=== PATIENT | male | born 1990 | race Caucasian/White ===

== ENCOUNTER 2021-08-01 08:45 | Outpatient (REF) | payer OTHER, SELFPAY ==
[2021-08-01 11:42] LABS: Hematocrit 46.1 % (42.0-52.0); Hemoglobin 15.6 g/dl (14.0-18.0); Mean Corpuscular HGB Conc 33.8 g/dl (31.0-36.0); Mean Corpuscular Hemoglobin 29.3 pg (27.0-33.0); Mean Corpuscular Volume 86.7 fL (80.0-98.0); Mean Platelet Volume 11.4 fL (9.4-12.4); Platelet Count 290 X10*3/uL (160-400); Red Blood Count 5.32 X10*6/uL (4.60-5.80); Red Cell Distribution Width 13.5 % (11.0-16.0); White Blood Count 9.7 X10*3/uL (4.8-10.8)
[2021-08-01 12:30] LABS: TSH reflex Free T4 1.57 uIU/mL (0.32-4.0)
[2021-08-01 12:31] LABS: Alanine Aminotransferase 69 U/L (0-40); Albumin Level 4.1 g/dL (3.5-5.0); Alkaline Phosphatase 65 U/L (39-117); Anion Gap 11 (12-20); Aspartate Amino Transferase 40 U/L (5-37); Blood Urea Nitrogen 13 mg/dL (9-16); Calcium 9.2 mg/dL (8.4-10.2); Carbon Dioxide 24 mmol/L (22-29); Chloride 111 mmol/L (96-108); Cholesterol 221 mg/dL; Estimated Glomerular Filt Rate > 60; Glucose Fasting 94 mg/dL (60-99); HDL Cholesterol 38 mg/dL; LDL Cholesterol Calculated 169 mg/dl; Potassium 4.5 mmol/L (3.3-5.1); Sodium 141 mmol/L (135-145); Total Protein 6.7 g/dL (6.5-8.0); Triglycerides 72 mg/dL
== END 2021-08-01 08:46 | disposition home or self-care (01) ==
LOC: HO.WFDLDS 08:45
PROVIDERS: Visit Provider Hospitalist
DX: Z00.00 Encounter for general adult medical examination without abnormal findings (principal)
CPT/HCPCS: 36415; 80053; 80061; 84443; 85027

== ENCOUNTER 2021-08-24 12:17 | Outpatient (REF) | payer OTHER, SELFPAY ==
--- NOTE | ~2021-08-24 | XR_ITS ---
EXAMINATION: XR ACROMIOCLAVICULAR JOINTS CLINICAL INFORMATION: Acromioclavicular joint pain. COMPARISON: None TECHNIQUE: AP and cephalad angulated AP views of the acromioclavicular joints. FINDINGS: A preliminary view labeled without weights demonstrates normal right acromioclavicular joint spacing of 7 mm (geometric leak uncorrected) with no inferior subluxation. The left acromioclavicular joint is only partially included in the image [id number] on this image. The visualized lung apices are clear. The clavicle are intact. No arthropathic changes of the right acromioclavicular joint noted. Weightbearing views demonstrate acromioclavicular joint spacing at 1.2 cm (geometrically uncorrected) with no inferior subluxation. I XR/XR AC joint BI IMPRESSION: Mild widening of the right acromioclavicular joint on weightbearing views without inferior subluxation of the acromion. Findings are suspicious for type I acromioclavicular joint injury.
--- NOTE | ~2021-08-24 | XR_ITS ---
EXAMINATION: XR SHOULDER, RIGHT CLINICAL INFORMATION: Pain in unspecified shoulder COMPARISON: None TECHNIQUE: AP external rotation, Grashey, scapular Y, and axillary views of the right shoulder. FINDINGS: The bones and soft tissues are normal. No fracture. Glenohumeral and acromioclavicular alignment is anatomic with normal joint space. No abnormal soft tissue calcifications. XR/XR shoulder RT min 2V IMPRESSION: Unremarkable shoulder
== END 2021-08-24 12:18 | disposition home or self-care (01) ==
LOC: HO.HOSX 12:17
PROVIDERS: Visit Provider Orthopaedic Surgery
DX: S43.101D Unspecified dislocation of right acromioclavicular joint, subsequent encounter (principal); M75.101 Unspecified rotator cuff tear or rupture of right shoulder, not specified as traumatic
CPT/HCPCS: 73030; 73050; 99202

== ENCOUNTER 2021-10-10 10:36 | Outpatient (REF) | payer OTHER, SELFPAY ==
--- NOTE | ~2021-10-10 | MR_ITS ---
EXAMINATION: MR SHOULDER WITHOUT CONTRAST, RIGHT CLINICAL INFORMATION: Shoulder pain and weakness COMPARISON: None TECHNIQUE: MRI of the shoulder without contrast was performed on a high-field scanner. FINDINGS: ROTATOR CUFF: Mild heterogeneous signal in the supraspinatus and infraspinatus tendons may reflect mild tendinosis. No focal tear is seen. Teres minor is intact. Mild subscapularis tendinosis. No muscle atrophy or fatty infiltration. BICEPS: Intact CORACOACROMIAL ARCH: The undersurface of the acromion is curved with no subacromial spur. The acromioclavicular distance appears widened. When measured on the axial sequence, this measures approximately 1.46 cm transverse. There is T2 signal within the joint space. The acromioclavicular ligaments are not well seen, appearing attenuated and irregular, suggesting sprain injury. The coracoclavicular ligament complex is not well seen, with the apparent attenuation/irregularity, suggesting sprain injury. Limited assessment of alignment of the acromion and clavicle on MRI. Imaging findings suggestive of acromioclavicular joint sprain injury. LABRUM/CNormal. No focal labral tear is seen. No paralabral cyst. GLENOHUMERAL JOINT/CAPSULE: No evidence of acute fracture. No significant joint effusion. No suspicious marrow signal changes. MR/MR shoulder RT wo con IMPRESSION: 1. Possible mild supraspinatus and infraspinatus tendinosis. Mild subscapularis tendinosis. No measurable rotator cuff tendon defect or retraction is seen. 2. Widening of the right acromioclavicular joint. Findings in the acromioclavicular ligaments and the coracoclavicular ligament complex suggestive of ligamentous injury/sprain.. The findings are indicative of the acromioclavicular joint injury. Evaluation of acromioclavicular alignment is limited on MRI, correlate with clinical findings and x-ray.
== END 2021-10-10 10:37 | disposition home or self-care (01) ==
LOC: HO.MRI 10:36
PROVIDERS: Visit Provider Orthopaedic Surgery
DX: M75.101 Unspecified rotator cuff tear or rupture of right shoulder, not specified as traumatic (principal); S43.109A Unspecified dislocation of unspecified acromioclavicular joint, initial encounter; X58.XXXA Exposure to other specified factors, initial encounter; Y93.9 Activity, unspecified; Y92.9 Unspecified place or not applicable; Y99.9 Unspecified external cause status
CPT/HCPCS: 73221

== ENCOUNTER → 2021-11-02 15:40 | Outpatient (BNVA) | payer OTHER, SELFPAY | PROVIDERS: PCP Hospitalist; Visit Provider Orthopaedic Surgery | DX: M19.019 Primary osteoarthritis, unspecified shoulder (principal) | CPT/HCPCS: 99212 ==

== ENCOUNTER → 2022-03-02 11:26 | Outpatient (BNVA) | payer OTHER, SELFPAY | PROVIDERS: PCP Hospitalist; Visit Provider Physician Assistant | DX: Z01.818 Encounter for other preprocedural examination (principal); M19.011 Primary osteoarthritis, right shoulder | CPT/HCPCS: 99212 ==

== ENCOUNTER 2022-03-07 07:32 | Day surgery (SDC) | payer OTHER, SELFPAY ==
[2022-03-01 14:20] VITALS: BMI 31.7
--- NOTE | 2022-03-06 09:52 | HO.ANESPROP2 ---
Documented by User: Alexa De Luna NP 03/06/22 09:53 HPI - Anesthesia Eval Consult details Narrative: 31yo M for Right Shoulder Arthroscopy distal/clavical excision possible open PMFSH Active Problems Active Problems: All Active Problems (Updated 03/01/22 @ 14:23 by Renay Nguyen RN) Well adult exam (Acute) Rotator cuff tear, right (Acute) Chronic tension headaches (Acute) Muscle spasms of neck (Acute) Right upper quadrant pain (Acute) AC joint dislocation (Acute) HTN (hypertension) (Acute) Acromioclavicular joint arthritis (Acute) Headache (Acute) Past Medical History Medical History HTN (hypertension) Family History Family History Mother Diabetes Father Diabetes Surgical History Surgical History History of biopsy Social History Social History Housing: Other Alcohol intake: current Alcohol intake frequency: a few times a week Alcohol type: beer Patient Tobacco Use Status: Current everyday Tobacco user Tobacco use type: Cigarette Cigarette Packs Per Day: 1 Cigarettes Per Day: 20 Smoked in Last 30 Days: Yes e-Cigarette/Vaping Use: Never Used Patient Interested in Nicotine Replacement: No Second Hand Smoke Exposure: Yes Are you DNR?: No Advance Directives: No Advance Directives Information Provided: Yes Nutrition Risks: No Nutritional Risk service: No Current occupational status: employed Current occupation: Security Cognitive needs: No Hearing needs: No Vision needs: No Meds Allergies Allergy/AdvReac Type Severity Reaction Status Date / Time bee venom protein (honey bee) Allergy Severe anaphylitic Verified 03/07/22 09:03 shock Exam Exam Date and Time: March 06, 2022 0952 Height,Weight and Vital Signs: Height 6 ft 2 in Weight 112.037 kg Assessment and Plan Assessment Anesthesia Assessment: Chart Reviewed Documented by User: Yordy Holman MD 03/07/22 16:49 PMFSH Past Medical History Medical History HTN (hypertension) Family History Family History Mother Diabetes Father Diabetes Family history of problems with anesthesia: No Surgical History Surgical History History of biopsy History of Problems with Anesthesia: No Social History Social History Housing: Other Alcohol intake: current Alcohol intake frequency: a few times a week Alcohol type: beer Patient Tobacco Use Status: Current everyday Tobacco user Tobacco use type: Cigarette Cigarette Packs Per Day: 1 Cigarettes Per Day: 20 Smoked in Last 30 Days: Yes e-Cigarette/Vaping Use: Never Used Patient Interested in Nicotine Replacement: No Second Hand Smoke Exposure: Yes Are you DNR?: No Advance Directives: No Advance Directives Information Provided: Yes Nutrition Risks: No Nutritional Risk service: No Current occupational status: employed Current occupation: Security Cognitive needs: No Hearing needs: No Vision needs: No Meds Allergies Allergy/AdvReac Type Severity Reaction Status Date / Time bee venom protein (honey bee) Allergy Severe anaphylitic Verified 03/07/22 09:03 shock Exam Airway Mallampati Class: III TM Dist: >3cm Neck ROM: Full Loose/Missing/Broken Teeth: Yes (Left upper tooth chipped , fillings ) Heart: S1,S2 Lungs: b/l breath sounds Assessment and Plan Assessment Anesthesia Assessment: Anesthesia Plan Discussed Final Anesthetic Review Family History of Problems with Anesthesia: No History of Problems with Anesthesia: No NPO: Yes ASA Class: II Final Preanesthetic Review: Meds/Allgs Chart Reviewed, Consent Obtained/Reviewed and Anes Risks/Benef Reviewed Patient Risk: Intermediate Procedure Risk: Intermediate Anesthetic Plan Anesthetic Plan: GA and Regional Block Disposition: Standard PACU
[2022-03-07] VITALS (15 sets, daily range): BP systolic 116–135; BP diastolic 58–88; PULSE 62–90; RESP 16–20; TEMP 36.1–36.8; O2SAT 95–98
[2022-03-07] MEDS: Lactated Ringers 1,000 ML 100 ML IVCONT (09:12)
[2022-03-07] MEDS: Acetaminophen 325 MG TABLET 650 MG PO (13:19)
[2022-03-07] MEDS: oxyCODONE HCl Immed Release 5 MG TABLET PO (13:19)
[2022-03-07] MEDS: HYDROmorphone HCl 0.5 MG/0.5 ML SYRINGE 0.25 MG IVPUSH ×2 (13:20→14:07)
--- NOTE | 2022-03-09 14:21 | W.PM.OPN ---
Operative Note Operative Note Date of Service: 03/07/22 Narrative: Date of Service: 03/07/22 Pre-op diagnosis: ACJ arthropathy Post-op diagnosis: same Procedure: 1) DCE 2) SAD Implants: none Surgeon: Sandeep Dawson MD Anesthesia: GETA and regional Was an Elementary School Music Teacher used for this Procedure?: No Estimated blood loss (mL): 5 IV fluids (mL): 600 Pathology: none sent Condition: stable Disposition: PACU Procedure in detail: Patient was brought to the operating room and placed the the beach chair position. All bony prominences were well padded and the limb was prepped and draped in standard sterile fashion. A time out was called to identify proper site, proper procedure and proper surgeon. IV antibiotics per weight were administered. I began by making a posterolateral stab incision with a 15 blade. A blunt trochar was placed into the glenohumeral joint and I insufflated the joint with saline and a 30 degree arthroscope was placed. I established an outside- in anterior portal just distal to the biceps tendon. I then began my inspection of the glenohumeral joint. The glenohumeral joint was pristine. Subscapularis, biceps and labrum and undersurface rotator cuff as well as the articular surfaces were all normal. I then removed the trochar and entered the subacromial space. A direct lateral portal was then established and I performed a bursectomy. The cuff was then examined and found to be intact. I then performed a 5 mm subacromial decompression and then entered the acromioclavicular joint. This joint was abnormal. The distal clavicle was mobile and there was significant space between the clavicle and the acromion. There was no remaining cartilage on the distal clavicle. I performed a 3 mm distal clavicle excision but there was no contact between the clavicle and the acromion and bile the joint was debrided it was also mobile and I suspect prior trauma. Once I was satisfied with the extent of distal clavicle excision and subacromial decompression my final images were captured. I removed all instrumentation. Portals were closed with nylon. Patient was placed in an abduction sling, extubated and brought to the recovery room in stable condition. There were no known complications.
== END 2022-03-07 15:23 | disposition home or self-care (01) ==
PROVIDERS: PCP Hospitalist; Visit Provider Orthopaedic Surgery
PROC: (CPT 29805; principal; 2022-03-07 11:50)
DX: M19.011 Primary osteoarthritis, right shoulder (principal); M25.511 Pain in right shoulder; I10 Essential (primary) hypertension; Z79.899 Other long term (current) drug therapy; F17.210 Nicotine dependence, cigarettes, uncomplicated
CPT/HCPCS: 29824; 29826; J0171; J0690; J1100; J1170; J2250; J2405; J2795; J3010

== ENCOUNTER 2022-05-08 11:00 | Outpatient (RCR) | payer OTHER, SELFPAY ==
--- NOTE | 2022-03-14 10:53 | MHC.PT.EP ---
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 PRESENTS POD #5 FOR ORTHOPEDIC FOLLOW UP AND PT EVALUATION. UPON EXAM HE DEMONSTRATES THE EXPECTED IMPAIRMENTS OF DECREASED ROM, DECREASED STRENGTH, ALTERED POSTURE AND POSITIONING, INCREASED UPPER TRAP GUARDING, AND INCREASED PAIN AND EDEMA. OF NOTE, CURRENTLY ARM IN SLING, NOW MAY WEAN. HESITANT TO MOVE ARM. REASSURED IT IS OK AT THIS TIME TO BEGIN WORKING ON IMPROVING ROM OF UE AND THERE WILL BE NO DAMAGE TO SURGICAL SITE. SUZY GALLARDO ALSO CONFIRMED THIS WITH CLIENT AND ANSWERED MULTIPLE QUESTIONS REGARDING PROCEEDURE IN DETAIL. ARA DEMONSTRATES SPASMING OF EXTREMITY WHEN ATTEMPTING TO MOVE ARM TO END RANGE AND WAS ENCOURGED, FREQUENTLY, TO MOVE SLOWLY AND WITH RESPECT TO PAIN LEVELS HE BEGINS HIS THERAPY. FUNCTIONAL LIMITATIONS INCLUDE DECREASED ABILITY TO PERFORM HOMEMAKING AND SELF-CARE TASKS, DECREASED ABILITY TO PERFORM PUSHING, PULLING, LIFTING AND REACHING. INABILITY TO DRIVE AND PERFORM WORK TASKS, DECREASED PARTICIPATION IN COMMUNITY AND RECREATIONAL ACTIVITIES AND DISRUPTED SLEEP. THE PT IS A GOOD CANDIDATE FOR SKILLED PT DUE TO AGE, POTENTIAL REMEDIATION OF IMPAIRMENTS, TYPICAL DISEASE/CONDITION PROGRESSION AND PROGNOSIS, COMORBIDITIES, AND MOTIVATION. PT WOULD BENEFIT FROM TAILORED PROGRAM OF THERAPEUTIC ACTIVITIES, FUNCTIONAL TRAINING, GAIT TRAINING, POSTURAL EDUCATION, NEUROMUSCULAR RE-EDUCATION, AND MODALITIES NEEDED. Frequency and Duration: The patient will be seen 2 X WEEK FOR 4 WEEKS Short Term Goals: INITIATE HEP AND PROMOTE SELF MANAGEMENT OF SYMPTOMS FULL PROM IN 2 WEEKS Vegetable Farm Manager Goals: FULL, PAIN FREE ROM FULL UE STRENGTH, PAIN FREE TO PERFORM WORK TASKS WITHOUT RESTRICTION AND PAIN NO GREATER THAN 2/[address] OBJECT AT MINIMUM OF 15# INTO CABINET AT SHOULDER HEIGHT Treatment Plan: Modalities to reduce pain, spasms and effusion. Manual therapy to restore motion and function. Therapeutic exercise to improve strength and flexibility. Neuromuscular re-education for posture and balance. Therapeutic activities to return to functional activities of daily living. Electronically signed by: NIURKA JENSEN PT, DPT Please sign and return to therapist. Thank you for your referral.
--- NOTE | 2022-05-28 10:51 | MHC.PT.DC ---
[facility] [place] Office [place] Office [place] Office [address] Quinn Beal [address] [phone] F: [phone] F: [phone] F: [phone] F: [phone] Physical Therapy Discharge Report Diagnosis: S/P SAD/DCE Date of Surgery: 03/07/22 Date of Evaluation: 03/12/22 Date of Discharge: 05/09/22 Treatments to Date: 13 Cancellations to Date: 0 No Shows to Date: 0 Discharge Status: Achieved Goals Improved Function Independent with HEP Discharge Summary: ARA DEMONSTRATES INDEPENDENCE WITH HEP, AROM IS WNLs, STRENGTH 5/5 T/O UE. HE HAS RETURNED TO THE GYM AND IS DCed FROM PT SERVICES AT THIS TIME. Electronically signed by: NIURKA JENSEN PT, DPT Please sign and return to therapist. Thank you for your referral.
== END 2022-05-28 10:53 | disposition home or self-care (01) ==
LOC: HO.PT 11:00
PROVIDERS: Visit Provider Physician Assistant
DX: M75.101 Unspecified rotator cuff tear or rupture of right shoulder, not specified as traumatic (principal); G44.229 Chronic tension-type headache, not intractable
CPT/HCPCS: 97110; 97161; 97530

== ENCOUNTER → 2022-05-21 12:49 | Outpatient (BNVA) | payer OTHER, SELFPAY | PROVIDERS: Visit Provider Physician Assistant | DX: M19.019 Primary osteoarthritis, unspecified shoulder (principal) | CPT/HCPCS: 99212 ==

== ENCOUNTER 2022-06-25 17:53 | Emergency (ER) | payer OTHER, SELFPAY ==
[2022-06-25 17:57] VITALS: BP 154/94; PULSE 100; RESP 16; TEMP 36.9; O2SAT 97; BMI 31.4
--- NOTE | 2022-06-25 22:23 | ED_ITS ---
HPI - General Adult General Chief complaint: Eye Problems Stated complaint: work inj. rocks in eye Time Seen by Provider: 06/25/22 22:22 Source: patient Mode of arrival: ambulatory Limitations: no limitations History of Present Illness HPI narrative: Patient is a 32 year old assigned male at with a history of HTN presenting to the emergency department today with bilateral eye pain. Patient states that he was at work he had rocks kicked up into his eyes. Patient states that he was able to use the eyewash station but feels like he still has something in his eyes. Patient denies any current dizziness, lightheadedness, abdominal pain, nausea, vomiting, fever, chills, blurry vision, double vision, loss of vision, chest pain, difficulty breathing, shortness of breath, back pain, night sweats, pain with urination, increased urinary frequency, increased urinary urgency, blood in his urine or stool, syncope or a near syncopal episode, recent trauma or falls, bowel incontinence, bladder incontinence, bowel retention, bladder retention, or any other complaints at this time. Onset (ago): minute(s) Location: eyes Radiation: non-radiation Severity: mild Severity scale (1-10): 2 Quality: dull Relieving factors: none Exacerbating factors: none Associated symptoms: denies other symptoms Treatments prior to arrival: none Related Data Previous Rx's Medication Instructions Recorded epinephrine 0.3 mg/0.3 mL 0.3 mg (0.3 mL) IM Q10M PRN 07/28/21 injection, auto-injector anaphylaxis 1 week #2 ea cyclobenzaprine 10 mg tablet 10 mg PO TID PRN muscle spasm 10 08/01/21 days #30 tabs blood pressure test kit-large #1 ea 08/29/21 lisinopril 5 mg tablet 5 mg PO DAILY 3 months #90 tabs 08/29/21 erythromycin 5 mg/gram (0.5 %) eye 0.5 inch ophthalmic (eye) Q4H 7 06/25/22 ointment days #3.5 grams Allergies Allergy/AdvReac Type Severity Reaction Status Date / Time bee venom protein (honey bee) Allergy Severe anaphylitic Verified 06/25/22 17:57 shock Review of Systems Constitutional: Constitutional: Reports no additional constitutional complaints, Denies chills, Denies fever(s) and Denies night sweats Eyes: Eyes: Reports no additional eye complaints, Denies blurry vision, Denies change in vision, Denies diplopia, Denies eye discharge, Denies loss of vision and Reports eye pain ENT: Denies dizziness Cardiovascular: Cardiovascular: Reports no additional cardiovascular complaints, Denies chest pain, Denies lightheadedness, Denies Loss of Consciousness and Denies dyspnea Respiratory: Respiratory: Reports no additional respiratory complaints and Denies dyspnea Gastrointestinal: Gastrointestinal: Reports no additional gastrointestinal complaints, Denies abdominal pain, Denies melena, Denies hematochezia, Denies change in bowel habits and Denies change in stool character Genitourinary: Genitourinary: Reports no additional male genitourinary complaints, Denies hematuria, Denies oliguria, Denies difficulty urinating, Denies dysuria, Denies urinary frequency, Denies urinary hesitancy, Denies urinary incontinence and Denies urinary urgency Musculoskeletal: Musculoskeletal: Reports no additional musculoskeletal complaints, Denies numbness and Denies tingling Neurologic: Denies dizziness, Denies loss of vision, Denies numbness and Denies tingling Psychiatric: Psychiatric: Reports no additional psychiatric complaints Endocrine: Endocrine: Reports no additional endocrine complaints Hematologic/Lymphatic: Hematologic/Lymphatic: Reports no additional hematologic/lymphatic complaints Allergic/Immunologic: Allergic/Immunologic: Reports no additional allergic/immunologic complaints [facility] Past Medical History Attestation statement: The following information was validated with the patient. Source: old records reviewed Medical History HTN (hypertension) Surgical History History of biopsy Family History Family History Mother Diabetes Father Diabetes Social History Social History Housing: Other Alcohol intake: current Alcohol intake frequency: a few times a week Alcohol type: beer Patient Tobacco Use Status: Current everyday Tobacco user Tobacco use type: Cigarette Cigarette Packs Per Day: 1 Cigarettes Per Day: 20 e-Cigarette/Vaping Use: Never Used Second Hand Smoke Exposure: Yes Advance Directives: No Advance Directives Information Provided: No service: No Current occupational status: employed Current occupation: Security Cognitive needs: No Hearing needs: No Vision needs: No Physical Exam ED Vital Signs: Vital Signs - 24 hr 06/25/22 17:57 Temperature 98.4 F Pulse Rate 100 Respiratory Rate 16 Blood Pressure 154/94 H Pulse Oximetry 97 Oxygen Delivery Method Room Air BMI result Body Mass Index 31.4 Const General: cooperative, no acute distress, alert and awake Nutritional Appearance: well nourished Orientation/consciousness: patient oriented x3 Limitations: no limitations HENMT Head: Yes normal to inspection and Yes atraumatic Ears: hearing grossly normal bilaterally and external ears normal General nose exam: Normal external nose present, no nasal discharge noted and no epistaxis Face and sinus: Yes normal facial exam, No abrasion and No laceration Mouth: Normal oral and palatal mucosa present, no drooling and no muffled voice Eyes General: appearance normal, both eyes and all related structures Periorbital: periorbital findings normal Eyelids: Yes eyelids normal Conjunctivae: conjunctivae normal Corneas: corneas abnormal bilateral abrasion Pupils: Equal, round and reactive pupils present EOM: EOMs intact bilaterally Neck Neck: Yes normal visual inspection, Yes full ROM and Yes no lymphadenopathy Chest Chest palpation & inspection: normal inspection of the chest Resp Effort & Inspection: normal respiratory effort and able to speak in complete sentences Auscultation: clear to auscultation bilaterally Cardio Rate: regular rate Rhythm: regular rhythm GI Inspection: Yes normal to inspection Neuro General: patient oriented x3 and moves all extremities Cranial nerves: Yes Equal, round and reactive pupils present Cognition (Neuro): normal cognition Motor exam (neuro): 5/5 motor strength present throughout Sensory Exam: Normal double simultaneous stimulation for sensation Coordination: [id number] test normal Extrem General: Yes normal to inspection, Yes full ROM and Yes capillary refill normal Psych Appearance: grossly normal Mental Status: mental status grossly normal Affect: normal affect Attitude: cooperative Thought process: Normal thought process present Thought content: Normal thought content present Insight: Good insight present (Psych) Medical Decision Making MDM Narrative Medical decision making narrative: Patient is a 32 year old assigned male at with a history of HTN prese nting to the emergency department today with bilateral eye pain. Patient's physical exam showed small bilateral corneal abrasions. I explained my physical exam findings to the patient. I answered all questions asked by the patient. I stressed the importance of the patient taking her medication as prescribed. I stressed the importance of the patient following up with her primary care provider. I stressed the importance of the patient returning to the emergency department immediately if her symptoms were to worsen or if she were to develop any dizziness, shortness of breath, difficulty breathing, chest pain, blurry vision, loss of vision, nausea, vomiting, abdominal pain, fever, chills, back pain, or any other complaints. Patient verbalized agreement and understanding with this treatment plan and discharge. Medical Records Medical records reviewed: Yes I reviewed the patient's medical records. Discharge Plan Discharge Clinical Impression: Abrasion, corneal Patient Disposition: Home, Self-Care Instructions: Corneal Abrasion (ED) Additional Instructions: Follow up with your primary care provider. Return to the emergency department immediately if your symptoms worsen or if you develop any dizziness, shortness of breath, difficulty breathing, chest pain, blurry vision, loss of vision, nausea, vomiting, abdominal pain, fever, chills, back pain, or any other complaints. Prescriptions: New erythromycin 5 mg/gram (0.5 %) ointment 0.5 inch ophthalmic (eye) Q4H 7 Days Qty: 3.5 0RF No Action epinephrine 0.3 mg/0.3 mL auto-injector 0.3 mg IM Q10M PRN (Reason: anaphylaxis) 7 Days Qty: 2 2RF Rx Instructions: do not exceed 3 doses per episode cyclobenzaprine 10 mg tablet 10 mg PO TID PRN (Reason: muscle spasm) 10 Days Qty: 30 2RF lisinopril 5 mg tablet 5 mg PO DAILY 90 Days Qty: 90 1RF (DME) blood pressure test kit-large Kit See Rx Instructions .Route Qty: 1 0RF Rx Instructions: As directed Referrals: Jasmyne Montalvo NP [Primary Care Provider] - Stand Alone Forms: Work/School Release Print Language: Greek
== END 2022-06-25 22:48 | disposition home or self-care (01) ==
PROVIDERS: Emergency Provider Internal Medicine; PCP Hospitalist
DX: S05.01XA Injury of conjunctiva and corneal abrasion without foreign body, right eye, initial encounter (principal); S05.02XA Injury of conjunctiva and corneal abrasion without foreign body, left eye, initial encounter; X58.XXXA Exposure to other specified factors, initial encounter; Y93.9 Activity, unspecified; Y92.9 Unspecified place or not applicable; Y99.9 Unspecified external cause status
CPT/HCPCS: 99283